=== PATIENT | female | born 1980 | race Two or more races ===

== ENCOUNTER 2016-09-18 23:21 | Inpatient (IN) | payer OTHER ==
[~2016-09-18] VITALS: Ht 157.5 cm; Wt 85.3 kg
[2016-09-18 23:30] VITALS: BP 149/95
[2016-09-18] MEDS ORDERED: NACL 0.9% 500 ML IV ONE (23:51)
[2016-09-18] MEDS ORDERED: KETOROLAC 30 MG/ML VIAL IVP ONE (23:55)
[2016-09-18] MEDS ORDERED: PANTOPRAZOLE 40 MG INJ VIAL IVP ONE (23:55)
[2016-09-18] MEDS ORDERED: ONDANSETRON 4 MG/2 ML VIAL IVP ONE (23:55)
[2016-09-19] VITALS (7 sets, daily range): BP systolic 100–139; BP diastolic 59–84
[2016-09-19 00:12] LABS: BASOPHILS # (AUTO) 0.2 K/uL (0.00-0.22); BASOPHILS % (AUTO) 2.3 % (0.0-2.0); EOSINOPHILS # (AUTO) 0.2 K/uL (0-0.4); EOSINOPHILS % (AUTO) 1.6 % (0.0-4.0); HEMATOCRIT 47.2 % (36-48); HEMOGLOBIN 15.4 g/dL (12.0-16.0); LYMPHOCYTES # (AUTO) 1.5 K/uL (2.5-16.5); LYMPHOCYTES % (AUTO) 15.1 % (20.5-51.1); MEAN CORPUSCULAR HEMOGLOBIN 29 pg (27-31); MEAN CORPUSCULAR HGB CONC 33 g/dL (33-37); MEAN CORPUSCULAR VOLUME 87 fL (80-94); MONOCYTES # (AUTO) 0.7 K/uL (0.8-1.0); MONOCYTES % (AUTO) 6.7 % (1.7-9.3); NEUTROPHILS # (AUTO) 7.5 K/uL (1.8-7.7); NEUTROPHILS % (AUTO) 74.3 % (42.2-75.2); PLATELET COUNT (AUTO) 187 K/uL (140-450); RED CELL DISTRIBUTION WIDTH 12.1 % (11.6-13.7); WHITE BLOOD COUNT (AUTO) 10.1 K/uL (4.8-10.8)
[2016-09-19 00:23] LABS: ANION GAP 13.1 (8-16); CALCIUM 9.5 mg/dL (8.5-10.1); CARBON DIOXIDE 27.6 mmol/L (21-32); CREATININE 1.1 mg/dL (0.6-1.3); POTASSIUM 3.7 mmol/L (3.5-5.1)
[2016-09-19 00:28] LABS: ALBUMIN 4.2 g/dL (3.4-5.0); TOTAL BILIRUBIN 1.2 mg/dL (0.0-1.0); TOTAL PROTEIN, SERUM 8.4 g/dL (6.4-8.2)
[2016-09-19] MEDS ORDERED: NACL 0.9% 1,000 ML IV SCH (01:33)
[2016-09-19] MEDS ORDERED: ACETAMINOPHEN 325 MG TAB PO PRN (01:35)
[2016-09-19] MEDS ORDERED: ONDANSETRON 4 MG/2 ML VIAL IM/IVP PRN (01:35)
[2016-09-19] MEDS ORDERED: DOCUSATE SODIUM 100 MG GELCAP PO PRN (01:35)
[2016-09-19] MEDS ORDERED: MORPHINE SULFATE 2 MG/ML SYR IVP PRN (01:35)
[2016-09-19 02:03] LABS: PARTIAL THROMBOPLASTIN TIME 28.3 secs (22-35.6); PROTHROMBIN TIME 10.5 secs (10.8-13.4)
[2016-09-19 02:14] LABS: APPEARANCE,URINE CLEAR (CLEAR); BILIRUBIN,URINE 1+ (NEGATIVE); BLOOD, URINE TRACE-I (NEGATIVE); COLOR,URINE YELLOW (YELLOW); LEUKOCYTE ESTERASE ,URINE NEGATIVE (NEGATIVE); NITRITE, URINE NEGATIVE (NEGATIVE); PROTEIN,URINE NEGATIVE (NEGATIVE); UGLUCOSE NEGATIVE (NEGATIVE)
[2016-09-19 02:15] LABS: CHOL/HDL RATIO 2.9 (1-4.5); FREE T4 (FREE THYROXINE) 1.18 ng/dL (0.76-1.46); MAGNESIUM 1.9 mg/dL (1.8-2.4); PHOSPHORUS 3.5 mg/dL (2.5-4.9); THYROID STIMULATING HORMONE 1.72 uIU/mL (0.34-3.74)
[2016-09-19 02:49] LABS: BACTERIA,URINE 3+ /HPF (None Seen); ICTOTEST NEGATIVE (NEGATIVE); RBC,URINE 0-5 (RARE) /HPF (0-5); WBC,URINE 0-5 (RARE) /HPF (0-5)
[2016-09-19] MEDS ORDERED: AMPICILLIN 1,000 MG VIAL ONE (03:38)
[2016-09-19] MEDS: AMPICILLIN 1,000 MG in NACL 0.9% 50 ML IV SCH ×4 (03:42→21:02)
[2016-09-19] MEDS: NACL 0.9% 1,000 ML IV SCH ×3 (04:40→21:03)
[2016-09-19 07:30] LABS: ALBUMIN 3.3 g/dL (3.4-5.0); ANION GAP 11.6 (8-16); CALCIUM 8.2 mg/dL (8.5-10.1); CARBON DIOXIDE 26.2 mmol/L (21-32); CREATININE 0.9 mg/dL (0.6-1.3); MAGNESIUM 1.8 mg/dL (1.8-2.4); PHOSPHORUS 3.4 mg/dL (2.5-4.9); POTASSIUM 3.8 mmol/L (3.5-5.1); TOTAL BILIRUBIN 2.2 mg/dL (0.0-1.0); TOTAL PROTEIN, SERUM 6.9 g/dL (6.4-8.2)
[2016-09-19 07:56] LABS: ANION GAP 10.4 (8-16); CALCIUM 8.3 mg/dL (8.5-10.1); CARBON DIOXIDE 26.6 mmol/L (21-32)
[2016-09-20 04:00] VITALS: BP 110/62
[2016-09-20] MEDS: NACL 0.9% 1,000 ML IV SCH (04:20)
[2016-09-20] MEDS: AMPICILLIN 1,000 MG in NACL 0.9% 50 ML IV SCH (04:39)
[2016-09-20 06:34] LABS: BASOPHILS # (AUTO) 0.2 K/uL (0.00-0.22); BASOPHILS % (AUTO) 3.5 % (0.0-2.0); EOSINOPHILS # (AUTO) 0.3 K/uL (0-0.4); EOSINOPHILS % (AUTO) 5.3 % (0.0-4.0); HEMATOCRIT 38.5 % (36-48); HEMOGLOBIN 13.2 g/dL (12.0-16.0); LYMPHOCYTES # (AUTO) 1.5 K/uL (2.5-16.5); LYMPHOCYTES % (AUTO) 27.3 % (20.5-51.1); MEAN CORPUSCULAR HEMOGLOBIN 30 pg (27-31); MEAN CORPUSCULAR HGB CONC 34 g/dL (33-37); MEAN CORPUSCULAR VOLUME 87 fL (80-94); MONOCYTES # (AUTO) 0.3 K/uL (0.8-1.0); MONOCYTES % (AUTO) 6.1 % (1.7-9.3); NEUTROPHILS # (AUTO) 3.1 K/uL (1.8-7.7); NEUTROPHILS % (AUTO) 57.8 % (42.2-75.2); PLATELET COUNT (AUTO) 150 K/uL (140-450); RED BLOOD CELL COUNT(AUTO) 4.42 MIL/uL (4.20-5.40); RED CELL DISTRIBUTION WIDTH 12.1 % (11.6-13.7); WHITE BLOOD COUNT (AUTO) 5.4 K/uL (4.8-10.8)
[2016-09-20 06:35] LABS: ALBUMIN 3.1 g/dL (3.4-5.0); ANION GAP 9.9 (8-16); CARBON DIOXIDE 27.5 mmol/L (21-32); CREATININE 0.9 mg/dL (0.6-1.3); POTASSIUM 4.4 mmol/L (3.5-5.1); TOTAL BILIRUBIN 0.8 mg/dL (0.0-1.0); TOTAL PROTEIN, SERUM 6.6 g/dL (6.4-8.2)
[2016-09-20 06:38] LABS: PHOSPHORUS 3.3 mg/dL (2.5-4.9)
[2016-09-20] MEDS ORDERED: ROCURONIUM 50 MG/5 ML VIAL IV ONE (07:35)
[2016-09-20] MEDS ORDERED: SUCCINYLCHOLINE CHLORIDE 200 MG/10 ML VIAL IVP ONE (07:35)
[2016-09-20] MEDS ORDERED: DEXAMETHASONE 4 MG/ML VIAL ONE (07:35)
[2016-09-20] MEDS ORDERED: SEVOFLURANE 250 ML BTL INH ONE (07:35)
[2016-09-20] MEDS ORDERED: KETOROLAC 60 MG/2 ML VIAL IM ONE (07:35)
[2016-09-20] MEDS ORDERED: PROPOFOL 200 MG/20 ML VIAL IV ONE (07:35)
[2016-09-20] MEDS ORDERED: ONDANSETRON 4 MG/2 ML VIAL ONE (07:35)
[2016-09-20] MEDS ORDERED: MIDAZOLAM 2 MG/2 ML VIAL ONE (07:41)
[2016-09-20] MEDS ORDERED: fentaNYL 0.05 MG/ML VIAL ONE (07:42)
[2016-09-20] MEDS ORDERED: MEPERIDINE 50 MG/ML SYR ONE (07:42)
[2016-09-20] MEDS ORDERED: BUPIVACAINE-MPF/EPI 0.5% 30 ML VIAL INJ ONE (07:44)
[2016-09-20 08:00] VITALS: BP 117/65
[2016-09-20] MEDS ORDERED: LACTATED RINGERS 1,000 ML IV SCH (08:09)
[2016-09-20] MEDS ORDERED: diphenhydrAMINE 50 MG/ML VIAL IVP PRN (08:10)
[2016-09-20] MEDS ORDERED: MEPERIDINE 25 MG/ML SYR IVP PRN (08:10)
[2016-09-20] MEDS ORDERED: HYDROmorphone 1 MG/ML AMP IVP PRN (08:10)
[2016-09-20] MEDS ORDERED: ONDANSETRON 4 MG/2 ML VIAL IVP PRN (08:10)
[2016-09-20 08:19] LABS: HEMOGLOBIN A1C 5.5 % (4.8-5.6); T4 (THYROXINE) 8.7 ug/dL (4.5-12.0)
[2016-09-20] MEDS: DEXT 5% / NACL 0.45% 1,000 ML IV SCH ×3 (09:15→23:35)
[2016-09-20 10:05] VITALS: BP 117/64
[2016-09-20] MEDS: AMPICILLIN/SULBACTAM 3 GM in NACL 0.9% 100 ML IV SCH ×3 (12:39→23:35)
[2016-09-20] MEDS: HYDROcodone/APAP 7.5/325 MG 1 TAB PO PRN ×2 (12:39→17:48)
[2016-09-20 16:00] VITALS: BP 114/66
[2016-09-21] VITALS: BP 108/62
[2016-09-21] MEDS: AMPICILLIN/SULBACTAM 3 GM in NACL 0.9% 100 ML IV SCH (05:09)
[2016-09-21 07:40] LABS: BASOPHILS # (AUTO) 0.1 K/uL (0.00-0.22); BASOPHILS % (AUTO) 1.4 % (0.0-2.0); EOSINOPHILS # (AUTO) 0.1 K/uL (0-0.4); EOSINOPHILS % (AUTO) 0.8 % (0.0-4.0); HEMATOCRIT 35.8 % (36-48); LYMPHOCYTES # (AUTO) 1.9 K/uL (2.5-16.5); LYMPHOCYTES % (AUTO) 23.4 % (20.5-51.1); MEAN CORPUSCULAR HEMOGLOBIN 29 pg (27-31); MEAN CORPUSCULAR HGB CONC 33 g/dL (33-37); MEAN CORPUSCULAR VOLUME 87 fL (80-94); MONOCYTES # (AUTO) 0.5 K/uL (0.8-1.0); MONOCYTES % (AUTO) 6.4 % (1.7-9.3); NEUTROPHILS # (AUTO) 5.7 K/uL (1.8-7.7); PLATELET COUNT (AUTO) 154 K/uL (140-450); RED BLOOD CELL COUNT(AUTO) 4.11 MIL/uL (4.20-5.40); RED CELL DISTRIBUTION WIDTH 12.1 % (11.6-13.7); WHITE BLOOD COUNT (AUTO) 8.3 K/uL (4.8-10.8)
[2016-09-21 07:55] VITALS: BP 129/92
[2016-09-21 08:05] LABS: ALBUMIN 3.1 g/dL (3.4-5.0); ANION GAP 9.8 (8-16); CALCIUM 7.9 mg/dL (8.5-10.1); CARBON DIOXIDE 25.8 mmol/L (21-32); CREATININE 0.9 mg/dL (0.6-1.3); POTASSIUM 3.6 mmol/L (3.5-5.1); TOTAL BILIRUBIN 0.5 mg/dL (0.0-1.0); TOTAL PROTEIN, SERUM 6.4 g/dL (6.4-8.2)
[2016-09-21] MEDS ORDERED: SIMETHICONE 80 MG TAB.CHEW PO SCH (10:20)
[2016-09-21] MEDS ORDERED: FLUC100T PO (13:13)
[2016-09-21] MEDS ORDERED: BISACODYL 5 MG TABEC PO SCH (15:14)
[2016-09-21] MEDS: DEXT 5% / NACL 0.45% 1,000 ML IV SCH (15:15)
[2016-09-21 16:00] VITALS: BP 131/89
[2016-09-21 16:12] VITALS: BP 131/89
== END 2016-09-21 18:40 | disposition home or self-care (01) | DRG 418 ==
LOC: MED 23:21 → MTU 09-19 01:41
PROVIDERS: ADMIT Family Medicine; ATTEND Family Medicine
PROC: BF121ZZ Fluoroscopy of Gallbladder using Low Osmolar Contrast (ICD-10-PCS; 2016-09-20)
PROC: 0FT44ZZ Resection of Gallbladder, Percutaneous Endoscopic Approach (ICD-10-PCS; principal; 2016-09-20 07:30)
DX: K80.42 Calculus of bile duct with acute cholecystitis without obstruction (principal); N39.0 Urinary tract infection, site not specified; E44.0 Moderate protein-calorie malnutrition; K76.0 Fatty (change of) liver, not elsewhere classified; E78.5 Hyperlipidemia, unspecified; E66.9 Obesity, unspecified; E80.6 Other disorders of bilirubin metabolism; Z68.34 Body mass index [BMI] 34.0-34.9, adult; Z91.040 Latex allergy status; Z83.3 Family history of diabetes mellitus; Z82.49 Family history of ischemic heart disease and other diseases of the circulatory system; Z80.1 Family history of malignant neoplasm of trachea, bronchus and lung
CPT/HCPCS: 36415; 76705; 80048; 80053; 81001; 81025; 82150; 83036; 83690; 83735; 83880; 84100; 84436; 84439; 84443; 84479; 85025; 85610; 85730; 86886; 86900; 86901; 87081; 87086; 88304; 93005; 96361; 96374; 96375; 99285; C1887; C9113; J0290; J0295; J0330; J1100; J1885; J2175; J2250; J2405; J2704; J3010; J3490; J7030; J7042; Q0092

== ENCOUNTER 2020-03-28 12:32 | Emergency (ER) | payer OTHER ==
[~2020-03-28] VITALS: Ht 157.5 cm; Wt 83.5 kg
[~2020-03-28 12:32] MED LIST: FLUC100T PO
[2020-03-28 12:33] VITALS: BP 157/96
--- NOTE | 2020-03-28 12:38 | NUR ---
Ambulated to bed 2
[2020-03-28 13:40] VITALS: BP 143/96
--- NOTE | 2020-03-28 13:41 | NUR ---
Patient discharged with v/s stable. Written and verbal after care instructions given and explained. Patient alert, oriented and verbalized understanding of instructions. Ambulatory with steady gait. All questions addressed prior to discharge. ID band removed. Patient advised to follow up with PMD. Rx of Erythromycin given. Patient educated on indication of medication including possible reaction and side effects. Opportunity to ask questions provided and answered.
== END 2020-03-28 13:41 | disposition home or self-care (01) ==
LOC: MED 12:32
DX: H11.32 Conjunctival hemorrhage, left eye (principal); Z91.040 Latex allergy status; Z79.899 Other long term (current) drug therapy
CPT/HCPCS: 99283

== ENCOUNTER 2020-04-01 09:23 | Outpatient (CLI) | payer OTHER ==
[2020-04-01 09:48] LABS: BASOPHILS % (AUTO) 0.4 % (0.0-2.0); EOSINOPHILS # (AUTO) 0.1 K/uL (0-0.4); EOSINOPHILS % (AUTO) 1.9 % (0.0-4.0); HEMATOCRIT 43.9 % (36-48); HEMOGLOBIN 14.9 g/dL (12.0-16.0); LYMPHOCYTES # (AUTO) 1.9 K/uL (2.5-16.5); LYMPHOCYTES % (AUTO) 28.4 % (20.5-51.1); MEAN CORPUSCULAR HEMOGLOBIN 30 pg (27-31); MEAN CORPUSCULAR HGB CONC 34 g/dL (33-37); MEAN CORPUSCULAR VOLUME 86.7 fL (80-94); MONOCYTES # (AUTO) 0.4 K/uL (0.8-1.0); MONOCYTES % (AUTO) 5.6 % (1.7-9.3); NEUTROPHILS # (AUTO) 4.3 K/uL (1.8-7.7); NEUTROPHILS % (AUTO) 63.7 % (42.2-75.2); PLATELET COUNT (AUTO) 176 K/uL (140-450); RED BLOOD CELL COUNT(AUTO) 5.06 MIL/uL (4.20-5.40); RED CELL DISTRIBUTION WIDTH 13.2 % (11.6-13.7); WHITE BLOOD COUNT (AUTO) 6.8 K/uL (4.8-10.8)
[2020-04-01 10:01] LABS: ALBUMIN 4.1 g/dL (3.4-5.0); BILIRUBIN,DIRECT 0.1 mg/dL (0.0-0.3); CARBON DIOXIDE 24.1 mmol/L (21-32); CHOL/HDL RATIO 3.2 (1-4.5); CREATININE 0.9 mg/dL (0.6-1.3); POTASSIUM 4.1 mmol/L (3.5-5.1); TOTAL BILIRUBIN 0.6 mg/dL (0.0-1.0)
== END 2020-04-01 20:10 | disposition home or self-care (01) ==
LOC: MLB 09:23
PROVIDERS: ATTEND Internal Medicine
DX: Z00.00 Encounter for general adult medical examination without abnormal findings (principal)
CPT/HCPCS: 36415; 80053; 80076; 85025